=== PATIENT | male | born 1975 | race African-American/Black ===

== ENCOUNTER 2019-05-22 17:07 | Emergency (ER) | payer SELFPAY ==
[~2019-05-22] VITALS: Ht 190.5 cm; Wt 87.7 kg
[2019-05-22 17:38] VITALS: BP 141/82
[2019-05-22] MEDS ORDERED: HYDROcodone/APAP 5/325MG 1 TAB TABLET PO ONE (17:45)
--- NOTE | 2019-05-22 18:08 | RAD ---
Examination: 3 views of the left ankle and 3 views of the left foot HISTORY: History of left ankle pain, swelling, left foot pain COMPARISON: None available. FINDINGS: The alignment of the ankle mortise grossly appears unremarkable. There is no acute fracture or dislocation identified. The alignment of the tarsal bones, tarsometatarsal joints, tarsophalangeal joints, interphalangeal joints grossly appears unremarkable. IMPRESSION: No acute osseous findings. Electronically signed by: Abdi Kim MD (05/22/2019 6:06 PM) [facility]
[2019-05-22] MEDS ORDERED: NAPR-514 PO (18:51)
--- NOTE | 2019-05-22 18:51 | PHYS DOC ---
Past Medical History Past Medical History: No Pertinent History (LIBRA ABRAHAM APRN) Past Surgical History: Other Additional Past Surgical Histo: left hand (LIBRA ABRAHAM APRN) Alcohol Use: Rarely (LIBRA ABRAHAM APRN) Attending Signature I have participated in the care of this patient and I have reviewed and agree with all pertinent clinical information above including history, exam, and recommendations. (EMY KIRBY MD) Adult General Chief Complaint Chief Complaint: ANKLE PROBLEM HPI HPI Patient is a 44 year old AA male who presents to the ER with complaints of L ankle and left foot pain and swelling without any known injury. Pt states he woke up from a nap and when he stepped down his ankle and foot hurt so bad he could not bear weight. Pt curently rates his pain a 10/10 on the pain scale he denies any alleviating factors. He denies any redness, warmth, numbness, or tingling of the LLE. All other ROS is neg unless otherwise noted in HPI. (LIBRA ABRAHAM APRN) Review of Systems Review of Systems See Above (LIBRA ABRAHAM APRN) Current Medications Current Medications Current Medications Medications (Trade) Dose Ordered Sig/Anuel Start Time Stop Time Status Last Admin Dose Admin Acetaminophen/ Hydrocodone Bitart (Lortab 5/325) 1 tab 1X ONCE 05/22/19 17:45 05/22/19 17:47 DC 05/22/19 18:13 1 TAB (EMY KIRBY MD) Allergies Allergies Allergies Coded Allergies Type Severity Reaction Last Updated Verified No Known Drug Allergies 05/22/19 No (EMY KIRBY MD) Physical Exam Physical Exam See Above Constitutional: Well developed, well nourished, no acute distress, non-toxic appearance. [] HENT: Normocephalic, atraumatic, bilateral external ears normal, nose normal. [] Eyes: PERRLA, EOMI, conjunctiva normal, no discharge. [] Neck: Normal range of motion, no stridor. [] Cardiovascular:Heart rate regular rhythm Lungs & Thorax: Respirations even and unlabored, no retractions, no respiratory distress Skin: Warm, dry, no erythema, no rash. [] Extremities: Diffuse left ankle tenderness to palpation, ROM limited due to pain, no erythema, no obvious deformity, no cyanosis, 1+ edema. [] Neurologic: Alert and oriented X 3, no focal deficits noted. [] Psychologic: Affect normal, judgement normal, mood normal. [] (LIBRA ABRAHAM APRN) Current Patient Data Vital Signs Vital Signs Date Time Temp Pulse Resp B/P (MAP) Pulse Ox O2 Delivery O2 Flow Rate FiO2 05/22/19 17:38 98.2 89 18 141/82 (101) 100 Room Air 98.2 (EMY KIRBY MD) EKG EKG [] (LIBRA ABRAHAM APRN) Radiology/Procedures Radiology/Procedures PROCEDURE: FOOT LEFT 3V Examination: 3 views of the left ankle and 3 views of the left foot HISTORY: History of left ankle pain, swelling, left foot pain COMPARISON: None available. FINDINGS: The alignment of the ankle mortise grossly appears unremarkable. There is no acute fracture or dislocation identified. The alignment of the tarsal bones, tarsometatarsal joints, tarsophalangeal joints, interphalangeal joints grossly appears unremarkable. IMPRESSION: No acute osseous findings. [] (LIBRA ABRAHAM APRN) Course & Med Decision Making Course & Med Decision Making Pertinent Labs and Imaging studies reviewed. (See chart for details) Pt presents for left ankle pain and swelling that began today. He denies fever, redness, warmth, or known injury. Pt states the pain began after he woke up from a nap. the pain was so severe he could not bear weight. X-rays of left foot and ankle were unremarkable. Pt was given a hydrocodone in the ER. An yousif wrap was applied and patient ambulated out of the ER without difficulty. Prescription was written for naproxen. [] (LIBRA ABRAHAM APRN) Dragon Disclaimer Dragon Disclaimer This electronic medical record was generated, in whole or in part, using a voice recognition dictation system. (LIBRA ABRAHAM APRN) Departure Departure Impression: Primary Impression: Acute left ankle pain Disposition: 01 HOME, SELF-CARE Condition: STABLE Referrals: NO PCP (PCP) Patient Instructions: Ankle Pain Additional Instructions: Fill prescription(s) and use as directed. Recommend application of ice, elevation, and rest of affected extremity. Wear the Yousif wrap as needed for comfort. Follow-up with Dr. Yoder if symptoms persist, return to the ER if your symptoms worsen. Scripts Naproxen (NAPROXEN) 500 Mg Tablet 1 TAB PO BID PRN for PAIN for 10 Days, #20 TAB 0 Refills Prov: LIBRA ABRAHAM APRN 05/22/19 LIBRA ABRAHAM APRN May 22, 2019 18:51 EMY KIRBY MD May 23, 2019 03:56
== END 2019-05-22 19:01 | disposition home or self-care (01) ==
LOC: ER 17:07
DX: M25.572 Pain in left ankle and joints of left foot (principal); M79.672 Pain in left foot; R60.9 Edema, unspecified; Z98.890 Other specified postprocedural states
CPT/HCPCS: 73610; 73630; 99284

== ENCOUNTER 2020-09-04 09:34 | Emergency (ER) | payer SELFPAY ==
[~2020-09-04] VITALS: Ht 188 cm; Wt 84.7 kg
[~2020-09-04 09:34] MED LIST: NAPR-514 PO
[2020-09-04] MEDS ORDERED: LIDOCAINE 1%/EPI 1:100,000 20 ML VIAL. SQ ONE (10:30)
[2020-09-04] MEDS ORDERED: DIPH,PERTUSS(ACELL),TET VAC/PF 0.5 ML SYRINGE. VAX IM ONE (10:30)
[2020-09-04 11:40] VITALS: BP 152/97
[2020-09-04] MEDS ORDERED: CEPH500C PO (11:50)
--- NOTE | 2020-09-04 11:50 | ED.ADGEN ---
Past Medical History Past Medical History: No Pertinent History Past Surgical History: Other Additional Past Surgical Histo: left hand Smoking Status: Current Every Day Smoker Alcohol Use: Heavy Additional Information: 1PINT EVERY 3-4DAYS General Adult EDM: Chief Complaint: LACERATION/AVULSION HPI: HPI: Patient is a 45 year old AA male who presents emergency department with complaints of a laceration to the front of his right lower thigh. Patient states he was using a chain saw when he accidentally dropped it and it hit his leg and cut it. Patient denies any bony tenderness or inability to bear weight. He states he is not sure when his last tetanus shot was. Patient denies any numbness, tingling, decreased sensation of the affected area. He currently rates pain a 6 out of 10 on the pain scale, he denies any alleviating or exacerbating factors. Review of Systems: Review of Systems: Complete ROS is negative unless otherwise noted in HPI. Current Medications: Current Medications Medications (Trade) Dose Ordered Sig/Anuel Start Time Stop Time Status Last Admin Dose Admin Diphtheria/ Tetanus/Acell Pertussis (ADACEL TDap SYRINGE) 0.5 ml ONCE ONCE 09/04/20 10:30 09/04/20 10:31 DC 09/04/20 10:16 0.5 ML Lidocaine/ Epinephrine (LIDOCAINE 1%-EPI 1:100,000 Multi-Dose) 20 ml 1X ONCE 09/04/20 10:30 09/04/20 10:31 DC 09/04/20 10:20 20 ML Allergies: Allergies: Allergies Coded Allergies Type Severity Reaction Last Updated Verified No Known Drug Allergies 09/04/20 No Physical Exam: PE: See Above Constitutional: Well developed, well nourished, no acute distress, non-toxic appearance. [] HENT: Normocephalic, atraumatic, bilateral external ears normal, nose normal. [] Eyes: PERRLA, EOMI, conjunctiva normal, no discharge. [] Neck: Normal range of motion, no stridor. [] Cardiovascular:Heart rate regular rhythm Lungs & Thorax: Respirations even and unlabored, no retractions, no respiratory distress Skin: Warm, dry, no erythema, no rash; 8 cm laceration to the anterior distal right thigh, no visible foreign body, no active bleeding, sensation intact, cap refill less than 2 seconds.. [] Extremities: RLE: No bony tenderness or obvious deformity, no crepitus, no cyanosis, ROM intact, no edema. [] Neurologic: Alert and oriented X 3, normal motor, normal sensory, no focal deficits noted. [] Psychologic: Affect normal, judgement normal, mood normal. [] Current Patient Data: Vital Signs: Vital Signs Date Time Temp Pulse Resp B/P (MAP) Pulse Ox O2 Delivery O2 Flow Rate FiO2 09/04/20 09:45 98.6 75 16 156/103 (120) 100 Room Air 98.6 EKG: EKG: [] Heart Score: C/O Chest Pain: No Risk Scores: Score 0 - 3: 2.5% MACE over next 6 weeks - Discharge Home Score 4 - 6: 20.3% MACE over next 6 weeks - Admit for Clinical Observation Score 7 - 10: 72.7% MACE over next 6 weeks - Early Invasive Strategies Radiology/Procedures: Radiology/Procedures: Laceration Repair by me: Anesthesia: 1% lidocaine with epi locally Location: Anterior distal right thigh Tendon/Joint/Nerves: No injury Foreign body: None detected after copious irrigation and exploration with NS and chlorhexidine Technique: 13 simple Interrupted Sutures with 4-0 Ethilon Complexity: No subcutaneous sutures/mucosal repair/edge excision Post Closure Length: 14 cm Patient's bleeding was easily controlled in the department and there is no indication of anemia. No evidence of compartment syndrome, neurologic injury, vascular injury, open joint, tendon laceration, or foreign body. Patient is appropriate for outpatient follow up. Scar minimazation instructions given. [] Course & Med Decision Making: Course & Med Decision Making Pertinent Labs and Imaging studies reviewed. (See chart for details) [] Dragon Disclaimer: Dragon Disclaimer: This electronic medical record was generated, in whole or in part, using a voice recognition dictation system. Departure Departure Impression: Primary Impression: Laceration of right thigh without complication Additional Impression: Need for Tdap vaccination Disposition: 01 HOME / SELF CARE / HOMELESS Condition: STABLE Referrals: NO PCP (PCP) Patient Instructions: Laceration Care, Adult, [id number] Additional Instructions: Fill the prescription and use it as directed. Keep the area clean and dry. You may take Tylenol or ibuprofen as needed for pain. Keep the dressing that was placed today on for 24 hours then change the dressing twice a day and apply antibiotic ointment to the area. Follow-up with your primary care doctor, or return to the emergency room in 10-14 days to have the sutures removed, sooner if you develop signs of infection including: redness, warmth, drainage, or a fever. Scripts Cephalexin (CEPHALEXIN) 500 Mg Capsule 1 CAP PO QID for 7 Days, #28 CAP 0 Refills Prov: LIBRA ABRAHAM APRN 09/04/20 Problem Qualifiers Primary Impression: Laceration of right thigh without complication Encounter type: initial encounter Qualified Codes: S71.111A - Laceration without foreign body, right thigh, initial encounter LIBRA ABRAHAM MANUFACTURING COORDINATOR September 04, 2020 11:50
== END 2020-09-04 12:06 | disposition home or self-care (01) ==
LOC: ER 09:34
DX: S71.111A Laceration without foreign body, right thigh, initial encounter (principal); W26.9XXA Contact with unspecified sharp object(s), initial encounter; Y93.89 Activity, other specified; Y92.89 Other specified places as the place of occurrence of the external cause; Y99.8 Other external cause status
CPT/HCPCS: 12005; 90471; 90715; 99283; J3490